=== PATIENT | male | born 1960 | race Caucasian/White ===

== ENCOUNTER 2016-12-08 10:10 | Inpatient (IN) | payer OTHER ==
[2016-12-08 10:38] VITALS: BMI 27.4
--- NOTE | 2016-12-08 12:31 | HP ---
COWS - Scale Resting Pulse: 1= [place] 81-100 Sweatin= Chills/Flushing Restless Observation: 3= Extraneous Movement Pupil Size: 2= Moderately Dilated Bone or Joint Aches: 4=Acute Joint/Muscle Pain Runny Nose/ Eye Tearin= Runny Nose/Eyes GI Upset > 30mins: 2= Nausea/Diarrhea Tremor Observation: 2= Slight Tremor Visible Yawning Observation: 2= >3x During Session Anxiety or Irritability: 2=Irritable/Anxious Goose Flesh Skin: 0=Smooth Skin COWS Score: 21 Admission ROS BHS - HPI Chief Complaint: DETOX TX FOR HEROIN DEPENDENCE Allergies/Adverse Reactions: Allergies Allergy/AdvReac Type Severity Reaction Status Date / Time Penicillins Allergy Unknown Verified 12/08/16 10:51 History of Present Illness: 56 Y/O MALE WITH A HX OF HEROIN DEPENDENCE SEEKING DETOX [place] Exam Limitations: No Limitations - Ebola screening Have you traveled outside of the country in the last 21 days: No Have you had contact with anyone from an Ebola affected area: No Have you been sick,other than usual withdrawal symptoms: No Do you have a fever: No - Review of Systems Constitutional: Chills, Loss of Appetite, Night Sweats, Changes in sleep EENT: reports: Blurred Vision, Tearing, Nose Congestion, Dental Problems ( MISSING TEETH.) Respiratory: reports: No Symptoms reported Cardiac: reports: Lightheadedness GI: reports: Constipated, Diarrhea, Nausea, Poor Appetite, Poor Fluid Intake, Vomiting : reports: No Symptoms Reported Musculoskeletal: reports: Back Pain, Joint Pain, Muscle Pain Integumentary: reports: Bruising (IVD INJ SITES ON FOREARMS) Neuro: reports: Headache, Unsteady Gait Endocrine: reports: No Symptoms Reported Hematology: reports: No Symptoms Reported Psychiatric: reports: Orientated x3, Depressed Other Systems: Reviewed and Negative Patient History - Patient Medical History Hx Anemia: No Hx Asthma: No Hx Chronic Obstructive Pulmonary Disease (COPD): No Hx Cardiac Disorders: No Hx Hypertension: No HX 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 AGO--NO RESIDUAL DEFICITS) Hx Seizures: No Hx Diabetes: No Hx Gastrointestinal Disorders: No Hx Genitourinary Disorders: No Hx Sexually Transmitted Disorders: No Hx Renal Disease (ESRD): Yes (HX RENAL FAILURE DUE TO DRUG USE.) Hx Thyroid Disease: No Hx Human Immunodeficiency Virus (HIV): No (NEGATIVE HX) Hx Hepatitis C: Yes (HX BUT UNDETECTABLE PER PT) Hx Depression: No Hx Suicide Attempt: No (DENIES) Hx Schizophrenia: No - Patient Surgical History Past Surgical History: No Hx Neurologic Surgery: No Hx Cataract Extraction: No Hx Cardiac Surgery: No Hx Lung Surgery: No Hx Breast Surgery: No Hx Breast Biopsy: No Hx Abdominal Surgery: No Hx Appendectomy: No Hx Cholecystectomy: No Hx Genitourinary Surgery: No Hx Orthopedic Surgery: No Anesthesia Reaction: No - PPD History Previous Implant?: Yes Documented Results: Negative w/o proof Implanted On Prior R Admission?: No PPD to be Administered?: Yes - Reproductive History Patient is a Female of Child Bearing Age (11 -55 yrs old): No (MALE) - Smoking Cessation Smoking history: Current every day smoker Have you smoked in the past 12 months: Yes Aproximately how many cigarettes per day: 20 Hx Chewing Tobacco Use: No Initiated information on smoking cessation: Yes 'Breaking Loose' booklet given: 12/08/16 - Substance & Tx. History Hx Alcohol Use: No (DENIES) Hx Substance Use: Yes (HEROIN) Hx Substance Use Treatment: Yes ([facility]) - Substances Abused Heroin Route: Injection Frequency: Daily Amount used: 20 BAGS Age of first use: 16 Date of Last Use: 12/08/16 Family Disease History - Family Disease History Family History: Denies Admission Physical Exam BHS - Vital Signs Vital Signs: Vital Signs - 24 hr 12/08/16 10:29 Temperature 97.1 F L Pulse Rate 88 Respiratory 20 Rate Blood Pressure 160/84 - Physical General Appearance: Yes: Moderate Distress, Irritable, Anxious HEENTM: Yes: EOMI, Normocephalic, CONNIE, Pharynx Normal, Nasal Congestion, Rhinorrhea Respiratory: Yes: Chest Non-Tender, Lungs Clear, Normal Breath Sounds, No Respiratory Distress Neck: Yes: No masses,lesions,Nodules, Supple, Trachea in good position Breast: Yes: Breast Exam Deferred Cardiology: Yes: Regular Rhythm, Regular Rate, S1, S2 Abdominal: Yes: Normal Bowel Sounds, Non Tender, Flat, Soft Genitourinary: Yes: Other (N/C) Back: Yes: Within Normal Limits Musculoskeletal: Yes: full range of Motion, Gait Steady Extremities: Yes: Normal Range of Motion, Non-Tender 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 NML intact, Fully Oriented, Alert, Motor Strength 5/5 Integumentary: Yes: Dry, Warm, Track [place] (BOTH FOREARMS-NO REDNESS OR SWELLING ) Lymphatic: Yes: Within Normal Limits - Diagnostic (1) Opioid dependence with withdrawal Current Visit: Yes Status: Acute Cleared for Admission [facility] - Detox or Rehab [facility] Level of Care: Medically Managed Detox Regimen/Protocol: Methadone [facility] Breath Alcohol Content Breath Alcohol Content: 0 Urine Drug Screen - Results Drug Screen Negative: No Urine Drug Screen Results: OPI-Opiates, OXY-Oxycodone
[2016-12-08] MEDS ORDERED: MAG HYDROX/AL HYDROX/SIMETH 30 ML UNIT-DOSE CUP PO PRN (12:38)
[2016-12-08] MEDS ORDERED: MENTHOL/PHENOL 1 EACH UD MM PRN (12:38)
[2016-12-08] MEDS ORDERED: MAGNESIUM CITRATE 300 ML BOTTLE PO PRN (12:38)
[2016-12-08] MEDS ORDERED: LOPERAMIDE HCL 2 MG CAPSULE PO PRN (12:38)
[2016-12-08] MEDS ORDERED: guaiFENesin/D-METHORPHAN HB 10 ML UNIT-DOSE CUPS PO PRN (12:38)
[2016-12-08] MEDS ORDERED: IBUPROFEN 400 MG TABLET (FP) PO PRN (12:38)
[2016-12-08] MEDS ORDERED: hydrOXYzine PAMOATE 25 MG CAPSULE (FP) PO PRN (12:38)
[2016-12-08] MEDS ORDERED: MAGNESIUM HYDROX 2400MG/30ML ORAL SUSPENSION 30 ML CUP PO PRN (12:38)
[2016-12-08] MEDS ORDERED: P-EPHED 60MG/TRIPROLIDI 2.5MG TABLET PO PRN (12:38)
[2016-12-08] MEDS ORDERED: NICOTINE POLACRILEX 4 MG GUM BUC PRN (12:38)
[2016-12-08] MEDS ORDERED: ACETAMINOPHEN 325 MG TABLET (FP) PO PRN (12:38)
[2016-12-08] MEDS ORDERED: METHADONE HCL 10 MG TABLET (FOR DETOX USE ONLY) PO ONE ×2 (12:49→23:00)
[2016-12-08] MEDS: diazePAM 5 MG TABLET PO PRN ×2 (14:27→20:12)
[2016-12-08] MEDS: NICOTINE 21 MG/24 HOURS TOPICAL PATCH TD SCH (14:28)
[2016-12-08 15:16] LABS: HIV 1 & 2 AB NEGATIVE; HIV 1 AGp24 NEGATIVE
--- NOTE | 2016-12-08 15:57 | EKG ---
Test Reason : Blood Pressure : / mmHG Vent. Rate : 080 BPM Atrial Rate : 080 BPM P-R Int : 156 ms QRS Dur : 090 ms QT Int : 378 ms P-R-T Axes : 027 015 039 degrees QTc Int : 435 ms NORMAL SINUS RHYTHM NORMAL ECG NO PREVIOUS ECGS AVAILABLE Confirmed by GALO GAYLE MD ([id number]) on 12/08/2016 3:57:04 PM Referred By: Corey Alcantara Confirmed By:GALO GAYLE MD
[2016-12-08 18:46] LABS: URINE APPEARANCE CLEAR; URINE BILIRUBIN NEGATIVE (NEGATIVE); URINE BLOOD NEGATIVE (NEGATIVE); URINE COLOR DKYELLOW; URINE GLUCOSE (UA) NEGATIVE (NEGATIVE); URINE KETONE NEGATIVE (NEGATIVE); URINE LEUK ESTERASE NEGATIVE (NEGATIVE); URINE NITRITE NEGATIVE (NEGATIVE); URINE PROTEIN NEGATIVE (NEGATIVE); URINE UROBILINOGEN NEGATIVE E.U./dl (0.2-1.0)
[2016-12-08] MEDS: THIAMINE HCL 100 MG TABLET (FP) PO SCH (22:35)
[2016-12-08] MEDS: diphenhydrAMINE HCL 50 MG CAPSULE PO PRN (22:36)
[2016-12-09] MEDS: TRIMETHOBENZAMIDE HCL 200MG/2ML INJ IM PRN ×2 (04:21→20:12)
[2016-12-09] MEDS: diazePAM 5 MG TABLET PO PRN ×4 (05:38→22:43)
[2016-12-09 09:53] LABS: URINE APPEARANCE CLOUDY; URINE BILIRUBIN NEGATIVE (NEGATIVE); URINE BLOOD NEGATIVE (NEGATIVE); URINE COLOR YELLOW; URINE GLUCOSE (UA) NEGATIVE (NEGATIVE); URINE KETONE NEGATIVE (NEGATIVE); URINE LEUK ESTERASE NEGATIVE (NEGATIVE); URINE NITRITE NEGATIVE (NEGATIVE); URINE PROTEIN NEGATIVE (NEGATIVE); URINE UROBILINOGEN 2.0 E.U/dl E.U./dl (0.2-1.0)
[2016-12-09 09:58] LABS: MCH 29.6 pg (25.7-33.7); MCHC 33.2 g/dl (32.0-35.9); MEAN PLT VOLUME 10.6 fl (7.5-11.1); PLATELET COUNT 242 K/MM3 (134-434); RDW 13.9 % (11.9-15.9); WHITE BLOOD COUNT 6.7 K/mm3 (4.0-10.0)
[2016-12-09] MEDS ORDERED: METHADONE HCL 10 MG TABLET (FOR DETOX USE ONLY) PO ONE (10:00)
[2016-12-09] MEDS: PRENATAL VITAMINS W/ FOLIC ACID TABLET (FP) PO SCH (10:41)
[2016-12-09] MEDS: NICOTINE 21 MG/24 HOURS TOPICAL PATCH TD SCH (10:41)
[2016-12-09 10:50] LABS: ALBUMIN 3.4 g/dl (3.4-5.0); ALK PHOS 87 U/L (45-117); ANION GAP 10 (8-16); BILIRUBIN,TOTAL 0.4 mg/dL (0.2-1.0); CALCIUM 9.1 mg/dL (8.5-10.1); CO2 29 mmol/L (21-32); CREATININE 0.7 mg/dL (0.7-1.3); GLUCOSE,RANDOM 122 mg/dL (74-106); SGOT/AST 21 U/L (15-37); SGPT/ALT 31 U/L (12-78); TOT PROT 7.1 g/dl (6.4-8.2)
--- NOTE | 2016-12-09 12:05 | PN ---
BHS COWS - Scale Resting Pulse: 1= [place] 81-100 Sweatin= Streaming Sweat Restless Observation: 3= Extraneous Movement Pupil Size: 2= Moderately Dilated Bone or Joint Aches: 4=Acute Joint/Muscle Pain Runny Nose/ Eye Tearin= Nasal Congestion GI Upset > 30mins: 1= Stomach Cramp Tremor Observation of Outstretched Hands: 1= Tremor [place], Not Seen Yawning Observation: 2= >3x During Session Anxiety or Irritability: 2=Irritable/Anxious Goose Flesh Skin: 0=Smooth Skin COWS Score: 21 BHS Progress Note (SOAP) Subjective: ANXIETY,SWEATS CHILLS/SWEATS,NAUSEA/VOMITING. Objective: 12/09/16 12:04 Vital Signs Temperature 96.7 F L 12/09/16 09:04 Pulse Rate 99 H 12/09/16 09:04 Respiratory Rate 20 12/09/16 09:04 Blood Pressure 143/89 12/09/16 09:04 O2 Sat by Pulse Oximetry (%) Laboratory Last Values WBC 6.7 K/mm3 (4.0-10.0) 12/09/16 06:20 RBC 4.60 M/mm3 (4.00-5.60) 12/09/16 06:20 Hgb 13.6 GM/dL (11.7-16.9) 12/09/16 06:20 Hct 40.9 % (35.4-49) 12/09/16 06:20 MCV 89.0 fl (80-96) 12/09/16 06:20 MCHC 33.2 g/dl (32.0-35.9) 12/09/16 06:20 RDW 13.9 % (11.9-15.9) 12/09/16 06:20 Plt Count 242 K/MM3 (134-434) 12/09/16 06:20 MPV 10.6 fl (7.5-11.1) 12/09/16 06:20 Sodium 142 mmol/L (136-145) 12/09/16 06:20 Potassium 4.1 mmol/L (3.5-5.1) 12/09/16 06:20 Chloride 103 mmol/L (98-107) 12/09/16 06:20 Carbon Dioxide 29 mmol/L (21-32) 12/09/16 06:20 Anion Gap 10 (8-16) 12/09/16 06:20 BUN 16 mg/dL (7-18) 12/09/16 06:20 Creatinine 0.7 mg/dL (0.7-1.3) 12/09/16 06:20 Creat Clearance w eGFR > 60 (>60) 12/09/16 06:20 Random Glucose 122 mg/dL (74-106) H 12/09/16 06:20 Calcium 9.1 mg/dL (8.5-10.1) 12/09/16 06:20 Total Bilirubin 0.4 mg/dL (0.2-1.0) 12/09/16 06:20 AST 21 U/L (15-37) 12/09/16 06:20 ALT 31 U/L (12-78) 12/09/16 06:20 Alkaline Phosphatase 87 U/L (45-117) 12/09/16 06:20 Total Protein 7.1 g/dl (6.4-8.2) 12/09/16 06:20 Albumin 3.4 g/dl (3.4-5.0) 12/09/16 06:20 Urine Color Yellow 12/09/16 08:30 Urine Appearance Cloudy 12/09/16 08:30 Urine pH 7.0 (5.0-8.0) 12/09/16 08:30 Ur Specific [place] 1.021 (1.001-1.035) 12/09/16 08:30 Urine Protein Negative (NEGATIVE) 12/09/16 08:30 Urine Glucose (UA) Negative (NEGATIVE) 12/09/16 08:30 Urine Ketones Negative (NEGATIVE) 12/09/16 08:30 Urine Blood Negative (NEGATIVE) 12/09/16 08:30 Urine Nitrite Negative (NEGATIVE) 12/09/16 08:30 Urine Bilirubin Negative (NEGATIVE) 12/09/16 08:30 Urine Urobilinogen 2.0 e.u/dl E.U./dl (0.2-1.0) 12/09/16 08:30 Ur Leukocyte Esterase Negative (NEGATIVE) 12/09/16 08:30 RPR Titer Nonreactive (NONREACTIVE) 12/09/16 06:20 HIV 1&2 Antibody Screen Negative 12/08/16 11:00 HIV P24 Antigen Negative 12/08/16 11:00 Assessment: 12/09/16 12:04 WITHDRAWAL SX Plan: CONTINUE DETOX
[2016-12-09] MEDS: THIAMINE HCL 100 MG TABLET (FP) PO SCH (22:43)
[2016-12-09] MEDS: diphenhydrAMINE HCL 50 MG CAPSULE PO PRN (22:44)
[2016-12-10] MEDS: diphenhydrAMINE HCL 50 MG CAPSULE PO PRN ×2 (02:00→22:53)
[2016-12-10] MEDS: diazePAM 5 MG TABLET PO PRN ×4 (03:47→19:49)
[2016-12-10] MEDS: TRIMETHOBENZAMIDE HCL 200MG/2ML INJ IM PRN (06:14)
[2016-12-10] MEDS ORDERED: METHADONE HCL 5 MG TABLET (FOR DETOX USE ONLY) PO ONE (10:00)
[2016-12-10] MEDS: PRENATAL VITAMINS W/ FOLIC ACID TABLET (FP) PO SCH (10:34)
[2016-12-10] MEDS: NICOTINE 21 MG/24 HOURS TOPICAL PATCH TD SCH (10:34)
--- NOTE | 2016-12-10 15:34 | PN ---
BHS COWS - Scale Resting Pulse: 2= [place] 101-120 Sweatin=Flushed/Facial Moisture Restless Observation: 1= Difficult to Sit Still Pupil Size: 0= Normal to Room Light Bone or Joint Aches: 2= Severe Diffuse Aches Runny Nose/ Eye Tearin= Runny Nose/Eyes GI Upset > 30mins: 2= Nausea/Diarrhea Tremor Observation of Outstretched Hands: 2= Slight Tremor Visible Yawning Observation: 1= 1-2x During Session Anxiety or Irritability: 2=Irritable/Anxious Goose Flesh Skin: 0=Smooth Skin COWS Score: 16 BHS Progress Note (SOAP) Subjective: Anxiety,sweating,interrupted sleep,restless,muscle aches/spasm. Objective: 12/10/16 15:33 Last Vital Signs Temp Pulse Resp BP Pulse Ox 96.7 F L 117 H 20 131/84 12/10/16 14:19 12/10/16 14:19 12/10/16 14:19 12/10/16 14:19 Laboratory Tests 12/08/16 12/08/16 12/09/16 11:00 13:00 06:20 WBC 6.7 RBC 4.60 Hgb 13.6 Hct 40.9 MCV 89.0 MCHC 33.2 RDW 13.9 Plt Count 242 MPV 10.6 Sodium Potassium Chloride Carbon Dioxide Anion Gap BUN Creatinine Creat Clearance w eGFR POC Glucometer Random Glucose Calcium Total Bilirubin AST ALT Alkaline Phosphatase Total Protein Albumin Urine Color Dkyellow Urine Appearance Clear Urine pH 6.0 Ur Specific [place] 1.027 Urine Protein Negative Urine Glucose (UA) Negative Urine Ketones Negative Urine Blood Negative Urine Nitrite Negative Urine Bilirubin Negative Urine Urobilinogen Negative Ur Leukocyte Esterase Negative RPR Titer HIV 1&2 Antibody Screen Negative HIV P24 Antigen Negative 12/09/16 12/09/16 12/09/16 06:20 06:20 08:30 WBC RBC Hgb Hct MCV MCHC RDW Plt Count MPV Sodium 142 Potassium 4.1 Chloride 103 Carbon Dioxide 29 Anion Gap 10 BUN 16 Creatinine 0.7 Creat Clearance w eGFR > 60 POC Glucometer Random Glucose 122 H Calcium 9.1 Total Bilirubin 0.4 AST 21 ALT 31 Alkaline Phosphatase 87 Total Protein 7.1 Albumin 3.4 Urine Color Yellow Urine Appearance Cloudy Urine pH 7.0 Ur Specific [place] 1.021 Urine Protein Negative Urine Glucose (UA) Negative Urine Ketones Negative Urine Blood Negative Urine Nitrite Negative Urine Bilirubin Negative Urine Urobilinogen 2.0 e.u/dl Ur Leukocyte Esterase Negative RPR Titer Nonreactive HIV 1&2 Antibody Screen HIV P24 Antigen 12/10/16 06:30 WBC RBC Hgb Hct MCV MCHC RDW Plt Count MPV Sodium Potassium Chloride Carbon Dioxide Anion Gap BUN Creatinine Creat Clearance w eGFR POC Glucometer 113 Random Glucose Calcium Total Bilirubin AST ALT Alkaline Phosphatase Total Protein Albumin Urine Color Urine Appearance Urine pH Ur Specific [place] Urine Protein Urine Glucose (UA) Urine Ketones Urine Blood Urine Nitrite Urine Bilirubin Urine Urobilinogen Ur Leukocyte Esterase RPR Titer HIV 1&2 Antibody Screen HIV P24 Antigen labs noted Assessment: 12/10/16 15:34 Withdrawal sx. Plan: continue detox
[2016-12-10] MEDS: THIAMINE HCL 100 MG TABLET (FP) PO SCH (22:52)
[2016-12-11] MEDS: diazePAM 5 MG TABLET PO PRN ×3 (01:11→10:37)
[2016-12-11] MEDS ORDERED: METHADONE HCL 5 MG TABLET (FOR DETOX USE ONLY) PO ONE (10:00)
[2016-12-11] MEDS: NICOTINE 21 MG/24 HOURS TOPICAL PATCH TD SCH (10:35)
[2016-12-11] MEDS: PRENATAL VITAMINS W/ FOLIC ACID TABLET (FP) PO SCH (10:35)
[2016-12-11] MEDS ORDERED: ONDANSETRON *ODT* 4 MG TABLET SL PRN (10:52)
[2016-12-11 13:58] VITALS: BP 115/71; PULSE 112; TEMP 96.4
--- NOTE | 2016-12-11 14:17 | PN ---
BHS Progress Note (SOAP) Subjective: Vomiting, Interrupted Sleep, Body Aches, Stomach Cramping, Sweating. Objective: PT. A & O X 3. 12/11/16 14:14 Vital Signs Temperature 96.4 F L 12/11/16 13:57 Pulse Rate 112 H 12/11/16 13:57 Respiratory Rate 18 12/11/16 13:57 Blood Pressure 115/71 12/11/16 13:57 O2 Sat by Pulse Oximetry (%) Laboratory Last Values WBC 6.7 K/mm3 (4.0-10.0) 12/09/16 06:20 RBC 4.60 M/mm3 (4.00-5.60) 12/09/16 06:20 Hgb 13.6 GM/dL (11.7-16.9) 12/09/16 06:20 Hct 40.9 % (35.4-49) 12/09/16 06:20 MCV 89.0 fl (80-96) 12/09/16 06:20 MCHC 33.2 g/dl (32.0-35.9) 12/09/16 06:20 RDW 13.9 % (11.9-15.9) 12/09/16 06:20 Plt Count 242 K/MM3 (134-434) 12/09/16 06:20 MPV 10.6 fl (7.5-11.1) 12/09/16 06:20 Sodium 142 mmol/L (136-145) 12/09/16 06:20 Potassium 4.1 mmol/L (3.5-5.1) 12/09/16 06:20 Chloride 103 mmol/L (98-107) 12/09/16 06:20 Carbon Dioxide 29 mmol/L (21-32) 12/09/16 06:20 Anion Gap 10 (8-16) 12/09/16 06:20 BUN 16 mg/dL (7-18) 12/09/16 06:20 Creatinine 0.7 mg/dL (0.7-1.3) 12/09/16 06:20 Creat Clearance w eGFR > 60 (>60) 12/09/16 06:20 POC Glucometer 105 UNITS (()) 12/11/16 05:24 Random Glucose 122 mg/dL (74-106) H 12/09/16 06:20 Calcium 9.1 mg/dL (8.5-10.1) 12/09/16 06:20 Total Bilirubin 0.4 mg/dL (0.2-1.0) 12/09/16 06:20 AST 21 U/L (15-37) 12/09/16 06:20 ALT 31 U/L (12-78) 12/09/16 06:20 Alkaline Phosphatase 87 U/L (45-117) 12/09/16 06:20 Total Protein 7.1 g/dl (6.4-8.2) 12/09/16 06:20 Albumin 3.4 g/dl (3.4-5.0) 12/09/16 06:20 Urine Color Yellow 12/09/16 08:30 Urine Appearance Cloudy 12/09/16 08:30 Urine pH 7.0 (5.0-8.0) 12/09/16 08:30 Ur Specific [place] 1.021 (1.001-1.035) 12/09/16 08:30 Urine Protein Negative (NEGATIVE) 12/09/16 08:30 Urine Glucose (UA) Negative (NEGATIVE) 12/09/16 08:30 Urine Ketones Negative (NEGATIVE) 12/09/16 08:30 Urine Blood Negative (NEGATIVE) 12/09/16 08:30 Urine Nitrite Negative (NEGATIVE) 12/09/16 08:30 Urine Bilirubin Negative (NEGATIVE) 12/09/16 08:30 Urine Urobilinogen 2.0 e.u/dl E.U./dl (0.2-1.0) 12/09/16 08:30 Ur Leukocyte Esterase Negative (NEGATIVE) 12/09/16 08:30 RPR Titer Nonreactive (NONREACTIVE) 12/09/16 06:20 HIV 1&2 Antibody Screen Negative 12/08/16 11:00 HIV P24 Antigen Negative 12/08/16 11:00 LABS NOTED. Assessment: 12/11/16 14:16 WITHDRAWAL SYMPTOMS. Plan: CONTINUE DETOX. PRN ZOFRAN SL FOR VOMITING. ADVISED PATIENT TO FOLLOW-UP WITH [facility] / REHAB MEDICAL PROVIDER AFTER DISCHARGE FROM DETOX FOR GENERAL MEDICAL ASSESSMENT AND FOR ANY ABNORMAL ADMISSION LAB VALUES.
--- NOTE | 2016-12-11 19:03 | DS ---
[facility] Detox Discharge Summary Admission Date: 12/08/16 Discharge Date: 12/11/16 - History Present History: Opioid Dependence Additional Comments: patient insists to leave the unit, refuses to wait face to face with provider, consider follow up as per arranged by the counselor - Physical Exam Results Vital Signs: Vital Signs Temperature 96.4 F L 12/11/16 13:57 Pulse Rate 112 H 12/11/16 13:57 Respiratory Rate 18 12/11/16 13:57 Blood Pressure 115/71 12/11/16 13:57 O2 Sat by Pulse Oximetry (%) Pertinent Admission Physical Exam Findings: withdrawal sx Laboratory Last Values WBC 6.7 K/mm3 (4.0-10.0) 12/09/16 06:20 RBC 4.60 M/mm3 (4.00-5.60) 12/09/16 06:20 Hgb 13.6 GM/dL (11.7-16.9) 12/09/16 06:20 Hct 40.9 % (35.4-49) 12/09/16 06:20 MCV 89.0 fl (80-96) 12/09/16 06:20 MCHC 33.2 g/dl (32.0-35.9) 12/09/16 06:20 RDW 13.9 % (11.9-15.9) 12/09/16 06:20 Plt Count 242 K/MM3 (134-434) 12/09/16 06:20 MPV 10.6 fl (7.5-11.1) 12/09/16 06:20 Sodium 142 mmol/L (136-145) 12/09/16 06:20 Potassium 4.1 mmol/L (3.5-5.1) 12/09/16 06:20 Chloride 103 mmol/L (98-107) 12/09/16 06:20 Carbon Dioxide 29 mmol/L (21-32) 12/09/16 06:20 Anion Gap 10 (8-16) 12/09/16 06:20 BUN 16 mg/dL (7-18) 12/09/16 06:20 Creatinine 0.7 mg/dL (0.7-1.3) 12/09/16 06:20 Creat Clearance w eGFR > 60 (>60) 12/09/16 06:20 POC Glucometer 105 UNITS (()) 12/11/16 05:24 Random Glucose 122 mg/dL (74-106) H 12/09/16 06:20 Calcium 9.1 mg/dL (8.5-10.1) 12/09/16 06:20 Total Bilirubin 0.4 mg/dL (0.2-1.0) 12/09/16 06:20 AST 21 U/L (15-37) 12/09/16 06:20 ALT 31 U/L (12-78) 12/09/16 06:20 Alkaline Phosphatase 87 U/L (45-117) 12/09/16 06:20 Total Protein 7.1 g/dl (6.4-8.2) 12/09/16 06:20 Albumin 3.4 g/dl (3.4-5.0) 12/09/16 06:20 Urine Color Yellow 12/09/16 08:30 Urine Appearance Cloudy 12/09/16 08:30 Urine pH 7.0 (5.0-8.0) 12/09/16 08:30 Ur Specific [place] 1.021 (1.001-1.035) 12/09/16 08:30 Urine Protein Negative (NEGATIVE) 12/09/16 08:30 Urine Glucose (UA) Negative (NEGATIVE) 12/09/16 08:30 Urine Ketones Negative (NEGATIVE) 12/09/16 08:30 Urine Blood Negative (NEGATIVE) 12/09/16 08:30 Urine Nitrite Negative (NEGATIVE) 12/09/16 08:30 Urine Bilirubin Negative (NEGATIVE) 12/09/16 08:30 Urine Urobilinogen 2.0 e.u/dl E.U./dl (0.2-1.0) 12/09/16 08:30 Ur Leukocyte Esterase Negative (NEGATIVE) 12/09/16 08:30 RPR Titer Nonreactive (NONREACTIVE) 12/09/16 06:20 HIV 1&2 Antibody Screen Negative 12/08/16 11:00 HIV P24 Antigen Negative 12/08/16 11:00 lab noted - Treatment Hospital Course: Detox Protocol Followed, Responded well - Medication Discharge Medications: Ambulatory Orders NK [No Known Home Medication] 12/08/16 - Diagnosis (1) Opioid dependence with withdrawal Status: Acute - AMA Did Patient Leave Against Medical Advice: Yes
[2016-12-12] MEDS ORDERED: METHADONE HCL 10 MG TABLET (FOR DETOX USE ONLY) PO ONE (10:00)
[2016-12-13] MEDS ORDERED: METHADONE HCL 5 MG TABLET (FOR DETOX USE ONLY) PO ONE (06:00)
== END 2016-12-11 17:55 | disposition left against medical advice (07) | DRG 770 ==
LOC: YASAS 10:10 → Y3N 11:15
PROVIDERS: ADMIT Internal Medicine; ATTEND Internal Medicine
PROC: HZ2ZZZZ Detoxification Services for Substance Abuse Treatment (ICD-10-PCS; principal; 2016-12-11)
DX: F11.23 Opioid dependence with withdrawal (principal); B18.2 Chronic viral hepatitis C; Z86.73 Personal history of transient ischemic attack (TIA), and cerebral infarction without residual deficits; Z87.448 Personal history of other diseases of urinary system
CPT/HCPCS: 36415; 80053; 81003; 85027; 86593; 87389; 93005; 93010